=== PATIENT | male | born 1965 | race Caucasian/White ===

== ENCOUNTER 2016-09-06 10:48 | Emergency (ER) | payer BC, OTHER ==
--- NOTE | 2016-09-06 12:57 | UC ---
Respiratory Complaint HPI - HPI Summary HPI Summary: cough, congestion, aches, nasal congestion x 6 days, not improving. - History of Current Complaint Chief Complaint: UCRespiratory Stated Complaint: CONGESTION Time Seen by Provider: 09/06/16 12:53 Hx Obtained From: Patient Onset/Duration: Gradual Onset, Lasting Days, Still Present Timing: Constant Severity Initially: Moderate Severity Currently: Moderate Pain Intensity: 7 Pain Scale Used: 0-10 Numeric Character: Sputum Description: - yellow Aggravating Factors: Nothing Alleviating Factors: Nothing Associated Signs And Symptoms: Positive: Fever, Chills, Wheezing, URI, Nasal Congestion - Risk Factors Pulmonary Embolism Risk Factors: Negative Cardiac Risk Factors: Negative Pseudomonas Risk Factors: Negative Tuberculosis Risk Factors: Negative - Allergies/Home Medications Allergies/Adverse Reactions: Allergies Allergy/AdvReac Type Severity Reaction Status Date / Time No Known Allergies Allergy Verified 09/06/16 11:16 Home Medications: Home Medications Pseudoephedrine-Dm [Cough Syrup D] 1 dose PO ONCE 09/06/16 [History Confirmed ] PMH/Surg Hx/FS Hx/Imm Hx Previously Healthy: Yes - Surgical History Surgical History: None - Family History Known Family History: Positive: Other - arthritis and cancer - Social History Occupation: Unemployed - seasonally Alcohol Use: Occasionally Substance Use Type: None Smoking Status (MU): Never Smoked Tobacco Review of Systems Constitutional: Fever, Chills Skin: Negative Eyes: Negative ENT: Sore Throat Respiratory: Cough Cardiovascular: Negative Gastrointestinal: Negative Genitourinary: Negative Motor: Negative Neurovascular: Negative Musculoskeletal: Arthralgia, Myalgia Neurological: Headache Psychological: Negative All Other Systems Reviewed And Are Negative: Yes Physical Exam Triage Information Reviewed: Yes Appearance: Well-Nourished, Ill-Appearing, Pain Distress Vital Signs: Initial Vital Signs Temp 98.0 F 09/06/16 11:12 Pulse 123 09/06/16 11:12 Resp 16 09/06/16 11:12 BP 142/102 09/06/16 11:12 Pulse Ox 94 09/06/16 11:12 elevated BP noted Vital Signs Reviewed: Yes Eyes: Positive: Conjunctiva Clear ENT: Positive: Hearing grossly normal, Pharyngeal erythema, TMs normal Neck: Positive: Supple, Nontender, No Lymphadenopathy Respiratory: Positive: No respiratory distress, No accessory muscle use, Wheezing - exp throughout Cardiovascular: Positive: RRR, No Murmur, Pulses Normal, Brisk Capillary Refill Musculoskeletal: Positive: Strength Intact, No Edema Neurological: Positive: Alert, Muscle Tone Normal Psychological Exam: Normal Skin Exam: Normal UC Diagnostic Evaluation - Laboratory O2 Sat by Pulse Oximetry: 94 Respiratory Course/Dx - Differential Dx/Diagnosis Differential Diagnosis/HQI/PQRI: Asthma, Bronchitis, Influenza, Lower Resp Infection Provider Diagnoses: acute asthmatic bronchitis Discharge - Discharge Plan Condition: Stable Disposition: HOME Prescriptions: Albuterol HFA INHALER* [Ventolin HFA Inhaler*] 2 puff INH Q4H PRN #1 mdi PRN Reason: Cough Azithromycin TAB* [Zithromax TAB (Z-KATJA) 250 mg #6 tabs] 2 tab PO .TODAY, THEN 1 DAILY #1 katja guaiFENesin/CODIEN 100MG-10MG* [Robitussin AC 100Mg-10Mg*] 5 ml PO Q4H PRN #50 ml MDD 20ml PRN Reason: Cough predniSONE TAB* [Deltasone TAB*] 40 mg PO DAILY #10 tab Patient Education Materials: Acute Bronchitis (ED) Referrals: Non Staff,Doctor [Primary Care Provider] -
[2016-09-06 13:22] VITALS: BP 134/95
== END 2016-09-06 13:20 | disposition home or self-care (01) ==
LOC: UCCORT 10:48
DX: J20.9 Acute bronchitis, unspecified (principal); J45.998 Other asthma; R50.9 Fever, unspecified; R09.81 Nasal congestion; R03.0 Elevated blood-pressure reading, without diagnosis of hypertension
CPT/HCPCS: 99202; G0463

== ENCOUNTER 2016-11-22 09:12 | Emergency (ER) | payer BC ==
--- NOTE | 2016-11-22 10:31 | UC ---
Ear Complaint HPI - HPI Summary HPI Summary: 50 male presents with complaints of right ear feeling plugged and having a constant humming in his ear. He also admits to some muffled hearing loss, although he is able to hear. Left ear is not as bad as the right per patient. Has tried Murine ear wax solution without success. States he thinks it made it worse. Patient has had a problem with wax in the past. States this has been going on for the past 2 weeks. Denies any other symptoms, nasal congestion, cough, fever/chills at this time. Patient uses ear plugs at work and thinks this may the cause of it. - History of Current Complaint Chief Complaint: UCEar Stated Complaint: BILATERAL EAR Time Seen by Provider: 11/22/16 10:19 Hx Obtained From: Patient Onset/Duration: Sudden Onset, Lasting Weeks, Worse Since Severity Initially: Mild Severity Currently: Moderate Pain Intensity: 1 Pain Scale Used: 0-10 Numeric Alleviating Factors: Nothing - Allergies/Home Medications Allergies/Adverse Reactions: Allergies Allergy/AdvReac Type Severity Reaction Status Date / Time No Known Allergies Allergy Verified 11/22/16 09:59 PMH/Surg Hx/FS Hx/Imm Hx - Additional Past Medical History Additional PMH: no current medications. medications updated and reviewed. Endocrine History Of: Denies: Diabetes Cardiovascular History Of: Denies: Cardiac Disorders, Hypertension Respiratory History Of: Denies: COPD Psychological History Of: Denies: Anxiety - Surgical History Surgical History: None - Family History Known Family History: Positive: Other - arthritis and cancer - Social History Alcohol Use: Occasionally Substance Use Type: None Smoking Status (MU): Unknown if Ever Smoked Amount Used/How Often: 1 can per week - Immunization History Vaccination Up to Date: Yes Review of Systems Constitutional: Negative Skin: Negative Eyes: Negative ENT: Ear Ache - right ear Respiratory: Negative Cardiovascular: Negative Gastrointestinal: Negative Musculoskeletal: Negative All Other Systems Reviewed And Are Negative: Yes Physical Exam Triage Information Reviewed: Yes Appearance: Well-Appearing, No Pain Distress, Well-Nourished Vital Signs: Initial Vital Signs Temp 98.3 F 11/22/16 09:55 Pulse 94 11/22/16 09:55 Resp 18 11/22/16 09:55 BP 171/95 11/22/16 09:55 Pulse Ox 94 11/22/16 09:55 Elevated BP, will re-check and monitor, patient states it is elevated when at doctor's. Recommended close follow up for re-check within the next week with primary care provider. Vital Signs Reviewed: Yes Eyes: Positive: Conjunctiva Clear ENT: Positive: Normal ENT inspection, Hearing grossly normal - decreased in right ear, but able to hear, Pharynx normal, TMs normal - left TM normal without redness, bulging and dullness. Unable to see right TM due to complete cerumen impaction. After irrigation right TM appeared normal. Right EAC appeared red and irritated however has been touching it and was just irrigated. Does not appear to be from an infection at this time. No periauricular tenderness.. Negative: Nasal congestion Dental Exam: Normal Respiratory: Positive: Chest non-tender, Lungs clear, Normal breath sounds, No respiratory distress, No accessory muscle use Cardiovascular: Positive: RRR, No Murmur, Pulses Normal Bowel Sounds: Positive: Present Musculoskeletal: Positive: Strength Intact, ROM Intact, No Edema Neurological Exam: Normal Skin Exam: Normal Re-Evaluation - Re-Evaluation First Eval Re-Evaluation Time: 10:45 Change: Improved - patient had relief in right ear after irrigation Ear Complaint Course/Dx - Course Course Of Treatment: Patient's right ear was irrigated to remove cerumen impaction. Given debrox script to use at home. Educated on use and proper use of q-tips and debrox drops. Follow up with PCP for elevated BP. Return if needed , aware of worsening signs and symptoms such as infection. - Differential Dx/Diagnosis Differential Diagnosis/HQI/PQRI: Cerumen Impaction, Foreign Body, Mastoiditis, Otitis Externa, Otitis Media, Other Provider Diagnoses: Cerumen Impaction, R Ear Discharge - Discharge Plan Condition: Stable Disposition: HOME Prescriptions: Carbamide Peroxide 6.5% OTIC* [DEBROX 6.5% Otic*] 5 drop BOTH EARS BID #1 bottle Patient Education Materials: Cerumen Impaction (ED), Hypertension (ED) Referrals: Non Staff,Doctor [Primary Care Provider] - Additional Instructions: Use prescribed ear drops to help prevent ear wax build up and to soften ear wax. You may use this for 4 days straight. Stop use after 4 days and if you do not have symptoms. If symptoms return or you feel wax is beginning to build up you may continue using drops as directed. If symptoms persist or do not improve please return. If you feel the ear canal is still irritating in the next couple of days please return to rule out infection. Do not stick q-tips into ear canal, only use on the outside of your ear. Follow up with primary care provider, especially to re-check blood pressure within the next 5-7 days.
[2016-11-22 10:50] VITALS: BP 174/93
== END 2016-11-22 10:58 | disposition home or self-care (01) ==
LOC: UCCORT 09:12
DX: H61.21 Impacted cerumen, right ear (principal); F17.220 Nicotine dependence, chewing tobacco, uncomplicated
CPT/HCPCS: 99213; G0463

== ENCOUNTER 2018-05-05 07:01 | Emergency (ER) | payer BC ==
[2018-05-05 07:15] VITALS: BP 157/86
--- NOTE | 2018-05-05 07:22 | UC ---
Skin Complaint HPI - HPI Summary HPI Summary: tick bite left shoulder x 2 days pt. removed the small tick yesterday no fever, no chills, no joint pain , no rash - History of Current Complaint Chief Complaint: UCSkin Time Seen by Provider: 05/05/18 07:12 Stated Complaint: TICK Hx Obtained From: Patient Onset/Duration: Gradual Onset, Lasting Days - 2, Resolved Timing: Constant Onset Severity: Mild Current Severity: Mild Pain Intensity: 0 Location: Other - left shoulder Character: Pain Aggravating Factor(s): Nothing Alleviating Factor(s): Nothing Associated Signs & Symptoms: Positive: Tenderness. Negative: Nausea, Vomiting, Fever, Chills, Rash Related History: Insect Bite/Sting - tick bite - Allergy/Home Medications Allergies/Adverse Reactions: Allergies Allergy/AdvReac Type Severity Reaction Status Date / Time No Known Allergies Allergy Verified 05/05/18 07:12 Review of Systems Constitutional: Negative Eyes: Negative ENT: Negative Respiratory: Negative Cardiovascular: Negative Gastrointestinal: Negative Is Patient Immunocompromised?: No All Other Systems Reviewed And Are Negative: Yes PMH/Surg Hx/FS Hx/Imm Hx Previously Healthy: Yes - Surgical History Surgical History: None - Family History Known Family History: Positive: Other - arthritis and cancer Negative: Diabetes - Social History Alcohol Use: Occasionally Substance Use Type: None Smoking Status (MU): Light Every Day Tobacco Smoker Amount Used/How Often: 1 can per week - Immunization History Vaccination Up to Date: Yes Physical Exam Triage Information Reviewed: Yes Appearance: Well-Appearing, No Pain Distress, Well-Nourished Vital Signs: Initial Vital Signs Temp 97.6 F 05/05/18 07:10 Pulse 95 05/05/18 07:10 Resp 15 05/05/18 07:10 BP 157/86 05/05/18 07:10 Pulse Ox 99 05/05/18 07:10 Vital Signs Reviewed: Yes Eye Exam: Normal Eyes: Positive: Conjunctiva Clear ENT: Positive: Normal ENT inspection, Hearing grossly normal, Pharynx normal Neck: Positive: Supple, Nontender, No Lymphadenopathy Respiratory: Positive: Chest non-tender, Lungs clear, Normal breath sounds Cardiovascular: Positive: RRR, No Murmur, Pulses Normal Abdominal Exam: Normal Skin Exam: Normal Skin: Positive: Other - tick was removed by the pt. from the left posterior shoulder Course/Dx - Diagnoses Provider Diagnoses: tick bite left shoulder Discharge - Sign-Out/Discharge Documenting (check all that apply): Patient Departure All imaging exams completed and their final reports reviewed: No Studies - Discharge Plan Condition: Stable Disposition: HOME Prescriptions: DOXYcycline CAP(*) [DOXYcycline 100MG CAP(*)] 200 mg PO DAILY #2 cap Patient Education Materials: Tick Bite (ED) Referrals: No Primary Care Phys,NOPCP [Primary Care Provider] - If Needed - Billing Disposition and Condition Condition: STABLE Disposition: Home
== END 2018-05-05 07:23 | disposition home or self-care (01) ==
LOC: UCCORT 07:01
DX: S40.262A Insect bite (nonvenomous) of left shoulder, initial encounter (principal); F17.210 Nicotine dependence, cigarettes, uncomplicated; W57.XXXA Bitten or stung by nonvenomous insect and other nonvenomous arthropods, initial encounter; Y92.9 Unspecified place or not applicable
CPT/HCPCS: 99212; G0463